=== PATIENT | female | born 2005 | race African-American/Black ===

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

== ENCOUNTER 2025-04-28 14:35 | Outpatient (CLI) | payer MEDICAID, SELFPAY ==
--- NOTE | 2025-04-28 14:45 | CRLHL7_ITS ---
For Patients: As a result of the Century Cures Act, medical imaging exams and procedure reports are released immediately into your electronic medical record. You may view this report before your referring provider. If you have questions, please contact your health care provider. INDICATION: Abnormal Vaginal Bleeding with IUD COMPARISON: 09/22/2024 TECHNIQUE: 2D narayan-scale and color Doppler images were acquired of the pelvis using a transabdominal and transvaginal approach. Transvaginal imaging performed to better visualize the endometrial stripe and ovaries. FINDINGS: Sonographic images demonstrate a normal size and smooth outer contour of the uterus. Uterus measures 8.0 cm in length by 3.3 cm in AP diameter by 4.6 cm in transverse dimension. The myometrium has a normal uniform echotexture. IUD is present within the lower uterine segment. Endometrial thickness 4.6 millimeters. The right ovary measures 4.6 x 2.6 x 2.3 cm in size and the left ovary measures 4.9 x 2.7 x 2.1 cm. The ovaries demonstrate normal arterial and venous blood flow on color Doppler analysis. There are no suspicious fluid collections within the cul-de-sac. Multiple follicles are present within the ovaries bilaterally. IMPRESSION: IUD is present in the lower uterine segment. Endometrial thickness 4.6 millimeters. Right ovarian volume 14.4 cc. Left ovarian volume 15.0 cc. Multiple bilateral ovarian follicles. Dictated by Stevenson Em MD @ 04/28/2025 3:38:22 PM (Electronically Signed)
== END 2025-04-28 14:36 | disposition home or self-care (01) ==
LOC: US 14:35
PROVIDERS: Visit Provider Registered Nurse
DX: N92.0 Excessive and frequent menstruation with regular cycle (principal); R93.89 Abnormal findings on diagnostic imaging of other specified body structures; N83.01 Follicular cyst of right ovary; N83.02 Follicular cyst of left ovary
CPT/HCPCS: 76830; 76856